=== PATIENT | female | born 1975 | race Two or more races ===

== ENCOUNTER 2024-02-06 08:00 | Outpatient (CLI) | payer OTHER ==
[2024-02-06] MEDS ORDERED: METFORMIN HCL1000 M2 (08:45)
[2024-02-06] MEDS ORDERED: LOSARTAN (08:45)
[2024-02-06] MEDS ORDERED: PROVIGIL200 MG (08:46)
[2024-02-06] MEDS ORDERED: SINGULAIR (08:46)
[2024-02-06] MEDS ORDERED: GLIPIZIDE XL10 MG (08:46)
[2024-02-06] MEDS ORDERED: SYNTHROID75 MCG (08:47)
[2024-02-06] MEDS ORDERED: TERAPIA ALBUTEROL (08:47)
[2024-02-06 09:04] LABS: HEMATOCRIT 43.4 % (36.0-45.00); HEMOGLOBIN 14.2 g/dL (12.0-15.00); MEAN CELL VOLUME 89.1 fL (80.00-100.00); MEAN CORPUSCULAR HEMOGLOBIN 29.2 pg (27.00-32.0); MEAN CORPUSCULAR HGB CONC 32.8 g/dl (32.0-36.0); PLATELET COUNT 276 K/uL (150-450); RED BLOOD COUNT 4.87 M/uL (4.00-6.00); RED CELL DISTRIBUTION WIDTH 13.9 % (11.5-14.5)
[2024-02-06 09:05] LABS: URINE BILIRRUBIN Negative (NEGATIVE); URINE BLOOD Negative; URINE COLOR Yellow; URINE KETONE Negative (NEGATIVE); URINE LEUKOCYTE Negative; URINE NITRATE Negative; URINE PROTEIN Negative (NEGATIVE); URINE UROBILINOGEN 0.2 E.U./dl
[2024-02-06 09:09] LABS: URINE BACTERIA 473.6 uL (0.0-1933); URINE EPITHELIAL CELLS 22.2 uL (0.0-38.8); URINE RBC 3.2 uL (0.0-20.8); URINE WBC 47.1 uL (0.0-23.2)
[2024-02-06 09:22] LABS: URINE APPEARANCE CLEAR; URINE GLUCOSE >=1000 MG/DL (NEGATIVE)
[2024-02-06 09:29] LABS: INR 0.94; PARTIAL THROMBOPLASTIN TIME 25.6 SECONDS (22.0-34.0); PROTHROMBIN TIME 10.3 SECONDS (9.0-11.5)
[2024-02-06 10:01] LABS: ALBUMIN 3.6 gm/dL (3.4-5.0); BILIRUBIN TOTAL 0.52 mg/dL (0.3-1.2); CALCIUM 9.5 mg/dL (8.5-10.1); CREATININE SERUM 0.6 mg/dL (0.55-1.02); GFR 106.25; GLOBULINA 3.1 G/DL (2.4-3.5); POTASSIUM 4.64 mEq/L (3.5-5.1); TOTAL PROTEIN 6.7 gm/dL (6.4-8.2); TSH 2.76 uIU/mL (0.358-3.74)
[2024-02-07 06:38] LABS: CALCIUM 9.7 mg/dL (8.5-10.1); CREATININE SERUM 0.66 mg/dL (0.55-1.02); GFR 95.19; POTASSIUM 3.84 mEq/L (3.5-5.1)
== END 2024-02-06 08:01 | disposition home or self-care (01) ==
LOC: RAD 08:00 → CIR.AMB 02-07 08:12 → EDSTATUS 02-07 18:51
PROVIDERS: ATTEND Obstetrics & Gynecology
DX: J45.909 Unspecified asthma, uncomplicated (principal); I10 Essential (primary) hypertension; R10.2 Pelvic and perineal pain; N92.5 Other specified irregular menstruation; N91.1 Secondary amenorrhea; R97.1 Elevated cancer antigen 125 [CA 125]

== ENCOUNTER 2024-05-29 08:05 | Outpatient (CLI) | payer OTHER ==
[~2024-05-29 08:05] MED LIST: GLIPIZIDE XL10 MG; LOSARTAN; METFORMIN HCL1000 M2; PROVIGIL200 MG; SINGULAIR; SYNTHROID75 MCG; TERAPIA ALBUTEROL
== END 2024-05-29 08:08 | disposition home or self-care (01) ==
LOC: SONOGRAMA 08:05
PROVIDERS: ATTEND Pathology Anatomic Pathology & Clinical Pathology
DX: D44.0 Neoplasm of uncertain behavior of thyroid gland (principal); E04.2 Nontoxic multinodular goiter

== ENCOUNTER 2024-07-10 12:24 | Emergency (ER) | payer OTHER ==
[~2024-07-10] VITALS: Ht 167.6 cm; Wt 88.5 kg
[2024-07-10 13:59] LABS: HEMATOCRIT 43.8 % (36.0-45.00); HEMOGLOBIN 14.2 g/dL (12.0-15.00); MEAN CELL VOLUME 88.8 fL (80.00-100.00); MEAN CORPUSCULAR HEMOGLOBIN 28.8 pg (27.00-32.0); MEAN CORPUSCULAR HGB CONC 32.5 g/dl (32.0-36.0); PLATELET COUNT 284 K/uL (150-450); RED BLOOD COUNT 4.93 M/uL (4.00-6.00)
[2024-07-10] MEDS ORDERED: ACETAMINOPHEN 500 MG GEL..CAP PO ONE (17:30)
[2024-07-10] MEDS ORDERED: PROMETHAZINE HCL 25 MG/ML AMPUL IM ONE (17:30)
== END 2024-07-10 18:13 | disposition home or self-care (01) ==
LOC: ER 12:27
PROVIDERS: Emergency Medicine
DX: N93.8 Other specified abnormal uterine and vaginal bleeding (principal); I10 Essential (primary) hypertension; E11.9 Type 2 diabetes mellitus without complications; Z79.84 Long term (current) use of oral hypoglycemic drugs; E03.9 Hypothyroidism, unspecified; Z88.8 Allergy status to other drugs, medicaments and biological substances

== ENCOUNTER 2024-08-28 04:40 | Day surgery (SDC) | payer OTHER ==
[2024-08-15 08:56] VITALS: BP 135/83
[2024-08-15 09:24] LABS: HEMATOCRIT 42.9 % (36.0-45.00); HEMOGLOBIN 13.7 g/dL (12.0-15.00); MEAN CELL VOLUME 88.2 fL (80.00-100.00); MEAN CORPUSCULAR HEMOGLOBIN 28.2 pg (27.00-32.0); PLATELET COUNT 271 K/uL (150-450); RED BLOOD COUNT 4.87 M/uL (4.00-6.00); RED CELL DISTRIBUTION WIDTH 14.1 % (11.5-14.5)
[2024-08-15 09:32] LABS: URINE APPEARANCE Clear; URINE BILIRRUBIN Negative (NEGATIVE); URINE BLOOD Negative; URINE COLOR Yellow; URINE KETONE Negative (NEGATIVE); URINE LEUKOCYTE Small; URINE NITRATE Negative; URINE PROTEIN Negative (NEGATIVE); URINE UROBILINOGEN 0.2 E.U./dl
[2024-08-15 09:35] LABS: URINE BACTERIA 626.5 uL (0.0-1933); URINE EPITHELIAL CELLS 25.4 uL (0.0-38.8)
[2024-08-15 09:54] LABS: URINE CAST 0.29 uL (0.0-1.40); URINE GLUCOSE 100 MG/DL (NEGATIVE); URINE RBC 1.3 uL (0.0-20.8)
[2024-08-15 10:06] LABS: INR < 0.93; PARTIAL THROMBOPLASTIN TIME 25.1 SECONDS (22.0-34.0); PROTHROMBIN TIME 10.1 SECONDS (9.0-11.5)
[2024-08-15 10:39] LABS: ALBUMIN 3.6 gm/dL (3.4-5.0); BILIRUBIN TOTAL 0.36 mg/dL (0.3-1.2); CALCIUM 9.7 mg/dL (8.5-10.1); CREATININE SERUM 0.64 mg/dL (0.55-1.02); GFR 98.22; GLOBULINA 2.7 G/DL (2.4-3.5); POTASSIUM 4.78 mEq/L (3.5-5.1); TOTAL PROTEIN 6.3 gm/dL (6.4-8.2); TSH 1.6 uIU/mL (0.358-3.74)
[~2024-08-28] VITALS: Ht 165.1 cm; Wt 88.5 kg
[~2024-08-28 04:40] MED LIST changes: +DOXYCYCLINE150 MG; +FENOFIBRIC ACID35 MG
[2024-08-28] MEDS ORDERED: CEFOXITIN SODIUM 2,000 MG VIAL IV ONE (07:51)
[2024-08-28] MEDS ORDERED: POVIDONE-IODINE 118 ML BOTT TOP ONE (08:52)
[2024-08-28] MEDS ORDERED: BUPIVACAINE HCL/MPF 0.5% 30ML VIAL ONE (08:52)
[2024-08-28] MEDS ORDERED: LIDOCAINE HCL 1%/EPINEPHRINE 20ML VIAL IJ ONE (08:53)
[2024-08-28] MEDS ORDERED: Tylenol #3 PO (11:41)
[2024-08-28] MEDS ORDERED: MORPHINE SULFATE 4 MG/ML VIAL IV PRN (11:45)
[2024-08-28] MEDS ORDERED: PROMETHAZINE HCL 50 MG/ML AMPUL IM ONE (11:45)
[2024-08-28] MEDS ORDERED: MORPHINE SULFATE 4 MG/ML VIAL IV ONE ×2 (12:05→12:35)
[2024-08-28 15:56] VITALS: BP 119/78; O2SAT 100
== END 2024-08-28 14:35 | disposition home or self-care (01) ==
LOC: CIR.AMB 04:40
PROVIDERS: ATTEND Obstetrics & Gynecology
DX: D27.1 Benign neoplasm of left ovary (principal); D28.2 Benign neoplasm of uterine tubes and ligaments; N80.102 Endometriosis of left ovary, unspecified depth; N80.202 Endometriosis of left fallopian tube, unspecified depth; Z88.6 Allergy status to analgesic agent; Z88.0 Allergy status to penicillin; I10 Essential (primary) hypertension; E11.9 Type 2 diabetes mellitus without complications; E03.8 Other specified hypothyroidism; J45.909 Unspecified asthma, uncomplicated